=== PATIENT | female | born 1970 | race African-American/Black ===

== ENCOUNTER 2016-09-13 00:31 | Emergency (ER) | payer OTHER ==
[~2016-09-13] VITALS: Ht 157.5 cm; Wt 88.1 kg
[~2016-09-13 00:31] MED LIST: DOCUSATE SODIU100 MG PO; ENDOCET 5-3251 EACH PO; FLAGYL500 MG PO; IRON325 M1 PO; LEVAQUIN750 MG PO; MILK OF MAGNESI10 ML PO; MOTRIN400 MG PO; OMEPRAZOLE40 M1 PO; ZOFRAN4 MG PO
[2016-09-13 01:29] LABS: HEMATOCRIT 39.1 % (36.0-46.0); MCH 30.4 PG (29.0-34.0); MCHC 35.5 G/DL (30.0-36.0); MCV 85.6 FL (83-99); MEAN PLAT.VOLUME 9.5 uM^3 (9.5-12.4); PLATELET COUNT 307 K/uL (156-360); RBC DIS.WIDTH-CV 14.9 % (11.8-14.6); RBC DIS.WIDTH-SD 46.1 % (39-53); RED BLOOD COUNT 4.57 M/uL (3.80-5.20); WHITE BLOOD COUNT 9.3 K/uL (4.1-10.2)
[2016-09-13 01:37] LABS: CHLORIDE 101 mEq/L (99-109); POTASSIUM 3.3 mEq/L (3.7-5.4); SODIUM 139 mEq/L (136-147)
[2016-09-13 01:39] LABS: GLUCOSE 169 mg/dL (70-99)
[2016-09-13 01:40] LABS: ANION GAP 17 MEQ/L (2-14)
[2016-09-13 01:41] LABS: TOTAL BILIRUBIN 0.8 mg/dL (0.0-1.0)
[2016-09-13 01:42] LABS: ALKALINE PHOSPHATASE 89 IU/L (3-129)
[2016-09-13 01:43] LABS: GFR ESTIMATE (CALCULATED) > 59 mL/min/
[2016-09-13 01:44] LABS: UREA NITROGEN (BUN) 24 mg/dL (9-23)
[2016-09-13 01:46] LABS: LIPASE 18 U/L (1.0-51.0)
[2016-09-13 01:56] LABS: TROP-I INTERPRETATION NEGATIVE; TROPONIN-I < 0.01 ng/mL (0.0-0.30)
[2016-09-13] MEDS ORDERED: ZOFRAN ODT4 MG PO (03:07)
[2016-09-13 03:51] VITALS: BP 126/70
== END 2016-09-13 03:51 | disposition home or self-care (01) ==
LOC: EME 00:31
PROVIDERS: Physician Assistant
DX: R10.13 Epigastric pain (principal); R11.2 Nausea with vomiting, unspecified; Z88.5 Allergy status to narcotic agent; Z90.710 Acquired absence of both cervix and uterus
CPT/HCPCS: 74020; 76705; 80053; 81003; 83690; 84484; 85027; 93005; 99281; 99284; J2405; J3010; J7030; S0028